=== PATIENT | female | born 1980 | race Caucasian/White ===

== ENCOUNTER 2017-04-27 13:26 | Emergency (ER) | payer OTHER ==
[~2017-04-27] VITALS: Ht 167.6 cm; Wt 79.0 kg
[2017-04-27 13:33] VITALS: Ht 167.6 cm; Wt 79.0 kg
--- NOTE | 2017-04-27 15:10 | ERD ---
ER Documentation Chief Complaint Chief Complaint c/o generalized body weakness x 1 yr. Suspect MS per family. HPI Patient is a 36-year-old female who presents to the ED for concerns of generalized body weakness 1 year. Patient states her symptoms started last April. Patient states at that time she was a [facility] patient underwent a full workup including blood work, CT scans, MRIs, lumbar puncture. Patient states all her testing was negative. Patient also states she saw a neurologist at that time. Patient states she continues to have weakness. Patient states yesterday she went to [facility] and underwent blood work. No imaging studies were completed. Patient was discharged home. Patient does admit to occasional blurry vision however she denies any visual changes at this time. Patient denies any chest pain, shortness of breath, abdominal pain, nausea, vomiting, diarrhea, acute confusion, excessive sleepiness or loss of consciousness. Patient denies any head injury or falls. Patient denies any ascending weakness. No recent travel. Patient denies any acute onset of unilateral weakness, slurred speech, difficulty ambulating, dysphasia or loss of consciousness. Patient and are concerned that patient has MS. ROS All systems reviewed and are negative except as per history of present illness. Physical Exam Vitals Vital Signs Date Time Temp Pulse Resp B/P Pulse Ox O2 Delivery O2 Flow Rate FiO2 04/27/17 15:43 78 20 112/75 100 Room Air 04/27/17 13:33 98.1 92 18 120/66 99 Physical Exam GENERAL: Well-developed, well-nourished female. Appears in no acute distress. Speaking in full sentences. HEAD: Normocephalic, atraumatic. No deformities or ecchymosis. EYE: Pupils equal, round, and reactive to light. EOMs intact. No conjunctival erythema. No eye discharge. ENT: External ear without any masses or tenderness. Auditory canals clear bilaterally. TM visualized bilaterally, non-erythematous, non-bulging. Nasal mucosa pink with no discharge. Oropharynx is pink without any tonsillar erythema or exudates. No uvula deviation. No kissing tonsils. NECK: Supple. No meningismus. Normal ROM of the neck. LUNG: Clear to auscultation bilaterally. No rhonchi, wheezing, rales or coarse breath sounds. HEART: Regular rate and rhythm. No murmurs, rubs or gallops. EXTREMITIES: Equal pulses bilaterally. No peripheral clubbing, cyanosis or edema. No unilateral leg swelling. NEUROLOGIC: Alert and oriented x3, cooperative. Mood and affect appropriate to situation. Cranial nerves II through XII are grossly intact. Normal speech. Motor exam: 5/5 strength in upper and lower extremities. Sensory exam: Sensation intact to light touch on all four extremities. Cerebellar function exam: No dysmetria on [id number] test. Steady gait. No pronator drift. SKIN: Normal color. Warm and dry. No rashes or lesions. Procedures/MDM ED COURSE: The patient was stable throughout ED course. I kept the patient and/or family informed of laboratory and diagnostic imaging results throughout the ED course. DIAGNOSTIC IMAGING: Read by radiologist. Patient: RAJAN GALLO : 1980 Age: 36 Sex: F MR #: [id number] DOS: 04/27/17 1445 Ordering MD: CHIARA RUIZ PA-C Location: [facility] Room/Bed: PROCEDURE: CT Brain without contrast. CLINICAL INDICATION: Pain, headache, weakness TECHNIQUE: Routine CT scan of the brain was performed on a high resolution multi detector scanner without intravenous contrast. One or more of the following dose reduction techniques were used: Automated exposure control; Adjustment of the mA and/or kV according to patient size; Use of iterative reconstruction technique. CTDI = 44 mGy. DLP = 630 mGy-cm. DICOM images are available. COMPARISON: No prior relevant examinations are available for comparison. FINDINGS: Hemorrhage: No evidence of intracranial hemorrhage. Acute ischemic changes: No evidence of acute ischemic changes. Mass effect: None. Parenchymal volume: Within normal limits for age. Ventricular system: Concordant with parenchymal volume. Chronic changes: Parenchymal attenuation is within normal limits. Extracranial soft tissues: Unremarkable. Calvarium: No fractures. Paranasal sinuses: Visualized paranasal sinuses are clear. Mastoid air cells: Visualized mastoid air cells are clear. IMPRESSION: No acute intracranial abnormalities. Normal appearance of the brain parenchyma. RPTAT: AADD .Crescencio Meza MD, MD Date Time Electronically viewed and signed by .Crescencio Meza MD, on 04/27/2017 15:16 .B/ CC: CHIARA RUIZ PA-C PROCEDURES: None. MEDICAL DECISION MAKING: Patient is a 36-year-old female who presents ED for concerns of generalized body weakness 1 year. Patient and family believe that patient's symptoms are consistent with MS. Patient seen yesterday at a [facility] facility and underwent blood work. Patient denies any imaging studies done at that time. Patient also states 1 year ago she was admitted for 5 days and had a complete workup including blood work, numerous imaging studies, spinal tap which are all unremarkable. Patient states that her symptoms have been worsening that she feels that she may still have MS despite negative previous workup.. Vital signs were reviewed. Patient is afebrile. Patient was not hypoxic. Patient was hemodynamically stable. I reviewed the patient's blood work that she brings with her. A copy was obtained will be scanned into the chart. Patient's CBC, BMP, PT/PTT, and troponin are all within normal limits. I did offer the patient repeat blood work today however she decline given all blood work was negative yesterday. I explained to the patient and her family at length that MS is not a diagnosis that can be made in the ER setting. Patient will require an MRI and further testing. Patient asked to have a CT brain be done at this time. CT brain showed No acute intracranial abnormalities. Normal appearance of the brain parenchyma. Patient was given referral information for neurologist. Patient also given referral for point of care specialist. At this time, patient presentation is most consistent with weakness of unknown etiology. Unable to rule out MS at this time. Low suspicion for ACS, CVA, TIA, intracranial hemorrhage, mass effect , GBS or acute neurological focal deficit. Prior to discharge, patient did not notify me that she made an appointment with her PCP for 2 days from now. Patient was advised to discuss obtaining referral for PCP for neurologist as well. Patient was non toxic, non ill appearing prior to discharge. Discussed case with my supervising physician Dr. Abbott who agreed with my decision making and plan. PRESCRIPTION: None DISCHARGE: At this time, patient is stable for discharge and outpatient management. Patient was given a copy of all imaging studies obtained today. I have instructed the patient to follow-up with his/her primary care physician in 1-2 days. I have discussed with the patient the possibility of needing to see a specialist for further workup and imaging studies if symptoms persist. I have instructed the patient to promptly return to the ER for any new or worsening symptoms including increased pain, fever, nausea, vomiting, weakness or LOC. The patient and/or family expressed understanding of and agreement with this plan. All questions were answered. Home care instructions were provided. Disclaimer: Inadvertent spelling and grammatical errors are likely due to EHR/ dictation software use and do not reflect on the overall quality of patient care. Also, please note that the electronic time recorded on this note does not necessarily reflect the actual time of the patient encounter. Departure Diagnosis: Primary Impression: Weakness Condition: Stable Patient Instructions: Generalized Weakness, Weakness, Unk Cause Referrals: DAWNA DIEGO MD,[facility] Additional Instructions: Call your primary care doctor TOMORROW for an appointment during the next 1-2 days.See the doctor sooner or return here if your condition worsens before your appointment time. Follow-up with a neurologist on an outpatient basis. See referral information. CHIARA RUIZ PA-C Apr 27, 2017 15:10
--- NOTE | 2017-04-27 15:17 | RADRPT ---
PROCEDURE: CT Brain without contrast. CLINICAL INDICATION: Pain, headache, weakness TECHNIQUE: Routine CT scan of the brain was performed on a high resolution multi detector scanner without intravenous contrast. One or more of the following dose reduction techniques were used: Auto mated exposure control; Adjustment of the mA and/or kV according to patient size; Use of iterative r econstruction technique. CTDI = 44 mGy. DLP = 630 mGy-cm. DICOM images are available. COMPARISON: No prior relevant examinations are available for comparison. FINDINGS: Hemorrhage: No evidence of intracranial hemorrhage. Acute ischemic changes: No evidence of acute ischemic changes. Mass effect: None. Parenchymal volume: Within normal limits for age. Ventricular system: Concordant with parenchymal volume. Chronic changes: Parenchymal attenuation is within normal limits. Extracranial soft tissues: Unremarkable. Calvarium: No fractures. Paranasal sinuses: Visualized paranasal sinuses are clear. Mastoid air cells: Visualized mastoid air cells are clear. IMPRESSION: No acute intracranial abnormalities. Normal appearance of the brain parenchyma. RPTAT: AADD .Crescencio Meza MD, MD Date Time Electronically viewed and signed by .Crescencio Meza MD, on 04/27/2017 15:16 .B/
[2017-04-27 15:43] VITALS: BP 112/75; PULSE 78; RESP 20
== END 2017-04-27 15:44 | disposition home or self-care (01) ==
LOC: FTE 13:26
DX: R53.1 Weakness (principal); R51 Headache
CPT/HCPCS: 70450; Z7502

== ENCOUNTER 2017-05-11 09:16 | Emergency (ER) | END 2017-05-11 14:52 | disposition home or self-care (01) ==

== ENCOUNTER 2017-05-15 13:39 | Emergency (ER) | END 2017-05-15 20:42 | disposition home or self-care (01) ==